=== PATIENT | male | born 1960 | race Caucasian/White ===

== ENCOUNTER 2018-01-14 22:18 | Emergency (ER) | payer SELFPAY ==
--- NOTE | 2018-01-14 22:31 | EDPHY ---
H & P Time Seen by Provider: 01/14/18 22:31 HPI/ROS: HPI CHIEF COMPLAINT: Cough, shortness of breath, wheezing, COPD exacerbation HISTORY OF PRESENT ILLNESS: A 57-year-old male, history of COPD not on oxygen, he is homeless, continues to smoke approximately half pack per day, presents emergency room with worsening shortness of breath and wheezing and cough. Denies cough being productive. Denies fever. Does state that given that he was smoking all today his increasing shortness of breath is worse. No chest pain. Past Medical History: History of COPD, not on oxygen Past Surgical History: No recent surgery Social History: Homeless, daily tobacco use denies illicit drugs or alcohol. Family History: Noncontributory ROS REVIEW OF SYSTEMS: A comprehensive 10 point review of systems is otherwise negative aside from elements mentioned in the history of present illness. Exam Constitutional appears nontoxic no acute distress, triage nursing summary reviewed, vital signs reviewed, awake/alert. Eyes normal conjunctivae and sclera, EOMI, PERRLA. HENT normal inspection, atraumatic, moist mucus membranes, no epistaxis, neck supple/ no meningismus, no raccoon eyes. Respiratory decreased breath sounds bilaterally, wheezing throughout all lung mccann, bronchitic sounding cough on exam Cardiovascular rate normal, regular rhythm, no murmur, no edema, distal pulses normal. Gastrointestinal soft, non-tender, no rebound, no guarding, normal bowel sounds, no distension, no pulsatile mass. Genitourinary no CVA tenderness. Musculoskeletal no midline vertebral tenderness, full range of motion, no calf swelling, no tenderness of extremities, no meningismus, good pulses, neurovascularly intact. Skin pink, warm, & dry, no rash, skin atraumatic. Neurologic awake, alert and oriented x 3, AAOx3, moves all 4 extremities equally, motor intact, sensory intact, CN II-XII intact, normal cerebellar, normal vision, normal speech. Psychiatric normal mood/affect. Heme/Lymph/Immune no lymphadenopathy. Differential Diagnosis: Includes but is not limited to in a particular order COPD exacerbation, pneumonia, viral syndrome, pneumothorax, CHF, ACS Medical Decision Making: Plan for this patient DuoNeb breathing treatment, IV Solu-Medrol, IV fluid bolus, basic labs, chest x-ray, EKG, troponin re-evaluate. Re-evaluation: EKG interpretation by me on record in [facility] system. Impression: Time of EKG 2244, sinus rhythm rate of 90 no signs of acute ischemia no ST elevation no ST depression no significant T-wave abnormalities. Nonischemic unremarkable EKG. ED x-ray chest one view negative for acute cardiopulmonary disease. No evidence of pneumonia. 2326: Patient re-evaluated this time: Patient is in fact sleeping at this time. On re-examination of his lungs he has good air movement no significant wheezing. I will provide him steroids for 5 days, albuterol inhaler, azithromycin. For COPD exacerbation. It is noted the patient is not hypoxic not tachycardic in no acute distress with good air movement bilaterally. I do not feel that he needs to be hospitalized for COPD this time. Patient be safely discharged with follow-up. Additionally I discussed return precautions with him he understands return emergency room if develops worsening shortness of breath, fever, vomiting. I highly recommend refrain from smoking. Source: Patient Constitutional: Initial Vital Signs Temperature (C) 37.3 C 01/14/18 22:33 Heart Rate 97 01/14/18 22:33 Respiratory Rate 16 01/14/18 22:33 Blood Pressure 147/93 H 01/14/18 22:33 O2 Sat (%) 92 01/14/18 22:33 O2 Delivery Mode Room Air Allergies/Adverse Reactions: egg [eggs] Allergy (Verified 01/14/18 22:32) Home Medications: Medication Instructions Recorded Albuterol 01/14/18 Azithromycin [Zithromax] 250 mg PO DAILY #6 tab 01/14/18 Prednisone 01/14/18 predniSONE 60 mg PO DAILY #15 tab 01/14/18 Medical Decision Making - Diagnostics Imaging Results: Imaging Impressions Chest X-Ray 01/14/18 22:36 Impression: 1. No definite pneumonia. 2. Consider chest two views when the patient's medical condition permits. - Data Points Laboratory Results: Laboratory Results 01/14/18 23:12 01/14/18 22:50 01/14/18 01/14/18 23:12 22:50 WBC 10.56 10^3/uL H 10^3/uL (3.80-9.50) RBC 4.46 10^6/uL 10^6/uL (4.40-6.38) Hgb 13.6 g/dL L g/dL (13.7-17.5) Hct 40.9 % % (40.0-51.0) MCV 91.7 fL fL (81.5-99.8) MCH 30.5 pg pg (27.9-34.1) MCHC 33.3 g/dL g/dL (32.4-36.7) RDW 13.2 % % (11.5-15.2) Plt Count 191 10^3/uL 10^3/uL (150-400) MPV 9.8 fL fL (8.7-11.7) Neut % (Auto) 72.1 % % (39.3-74.2) Lymph % (Auto) 17.9 % % (15.0-45.0) [place] % (Auto) 7.7 % % (4.5-13.0) Eos % (Auto) 1.7 % % (0.6-7.6) Baso % (Auto) 0.3 % % (0.3-1.7) Nucleat RBC Rel Count 0.0 % % (0.0-0.2) Absolute Neuts (auto) 7.62 10^3/uL H 10^3/uL (1.70-6.50) Absolute Lymphs (auto) 1.89 10^3/uL 10^3/uL (1.00-3.00) Absolute Monos (auto) 0.81 10^3/uL H 10^3/uL (0.30-0.80) Absolute Eos (auto) 0.18 10^3/uL 10^3/uL (0.03-0.40) Absolute Basos (auto) 0.03 10^3/uL 10^3/uL (0.02-0.10) Absolute Nucleated RBC 0.00 10^3/uL 10^3/uL (0-0.01) Immature Gran % 0.3 % % (0.0-1.1) Immature Gran # 0.03 10^3/uL 10^3/uL (0.00-0.10) Sodium 134 mEq/L L mEq/L (135-145) Potassium 3.8 mEq/L mEq/L (3.3-5.0) Chloride 107 mEq/L mEq/L (97-110) Carbon Dioxide 22 mEq/l mEq/l (22-31) Anion Gap 5 mEq/L L mEq/L (8-16) BUN 15 mg/dL mg/dL (7-23) Creatinine 0.6 mg/dL L mg/dL (0.7-1.3) Estimated GFR > 60 Glucose 94 mg/dL mg/dL (70-100) Calcium 9.0 mg/dL mg/dL (8.5-10.4) Medications Given: Discontinued Medications Albuterol/Ipratropium (Duoneb) 3 ml IH EDNOW ONE Stop: 01/14/18 22:37 Last Admin: 01/14/18 22:58 Dose: 3 ml Sodium Chloride (Ns) 1,000 mls @ 0 mls/hr IV EDNOW ONE; Wide Open PRN Reason: Protocol Stop: 01/14/18 22:37 Last Admin: 01/14/18 22:58 Dose: 1,000 mls Methylprednisolone Sodium Succinate (Solu-Medrol) 125 mg IVP EDNOW ONE Stop: 01/14/18 22:37 Last Admin: 01/14/18 22:58 Dose: 125 mg Departure - Departure Disposition: Home, Routine, Self-Care Clinical Impression: COPD (chronic obstructive pulmonary disease) Qualifiers: COPD type: chronic bronchitis Chronic bronchitis type: simple Qualified Code(s) : J41.0 - Simple chronic bronchitis Condition: Good Instructions: COPD (Chronic Obstructive Pulmonary Disease) (ED) Additional Instructions: 1. Return emergency room if you have worsening shortness of breath. 2. Albuterol inhaler 2 puffs every 4 hr as needed for shortness of breath. 3. Steroids as prescribed 4. Please stop smoking. Referrals: NONE *PRIMARY CARE P,. [Primary Care Provider] - As per Instructions Prescriptions: Azithromycin [Zithromax] 250 mg PO DAILY #6 tab predniSONE 60 mg PO DAILY #15 tab
[2018-01-14] MEDS ORDERED: IPRATROPIUM/ALBUTEROL 3 ML DEYVIAL IH ONE (22:36)
[2018-01-14] MEDS ORDERED: NS 1,000 ML IV ONE (22:36)
[2018-01-14] MEDS ORDERED: methylPREDNISolone SOD SUCC 125 MG/2 ML VIAL IVP ONE (22:36)
[2018-01-14] MEDS ORDERED: ALBUTEROL INH PREPACK MDI TAKEHOME ONE (22:40)
--- NOTE | 2018-01-14 22:47 | CPEKG ---
Heart Rate: 90 RR Interval: 667 P-R Interval: 148 QRSD Interval: 88 QT Interval: 352 QTC Interval: 431 P [place]: 45 QRS [place]: 53 T Wave [place]: 44 EKG Severity - NORMAL ECG - EKG Impression: SINUS RHYTHM Electronically Signed By: Pantera Perdomo 15-Jan-2018 07:33:00
[2018-01-14 23:19] LABS: PLATELET COUNT 191 10^3/uL (150-400)
[2018-01-14] MEDS ORDERED: AZITHROMYCIN 250 MG TAB PO ONE (23:28)
[2018-01-15 00:15] VITALS: BP 133/74
== END 2018-01-15 00:15 | disposition home or self-care (01) ==
DX: J41.0 Simple chronic bronchitis (principal); E86.9 Volume depletion, unspecified
CPT/HCPCS: 84484-PO; 96374; J2930